=== PATIENT | male | born 1970 | race Caucasian/White ===

== ENCOUNTER 2017-01-24 04:17 | Emergency (ER) | payer OTHER, BC ==
[2017-01-24 04:30] VITALS: BP 100/68; PULSE 77; TEMP 97.3; BMI 36.6
--- NOTE | 2017-01-24 04:41 | PDOC ---
History of Present Illness - General Chief Complaint: Injury Stated Complaint: FALL Time Seen by Provider: 01/24/17 04:25 - History of Present Illness Initial Comments: 01/24/17 04:41 CHIEF COMPLAINT: R hip pain s/p fall HISTORY OF PRESENT ILLNESS: 46 yo M with hx of R femoral bypass and R hip bursitis presents to ED with c/o R hip/leg pain s/p fall. 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 He states he "fell straight down" and was able to catch himself with on his hands and knees. He denies any LOC or trauma to head. He reports that his pain extends from his R hip all the way down to the middle of his R rajan, and fluctuates between a 7/10 to 10/10 pain and "reminds me of my bursitis." He has taken Motrin that was prescribed by Dr. Forrest, last dose was just prior to arrival to ED. No recent travel or sick contacts. 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 Denies tobacco, alcohol, illicit drug use. SURGICAL HISTORY: Denies ALLERGIES: No known drug allergies REVIEW OF SYSTEMS General/Constitutional: Denies fever or chills. Denies weakness, weight change. HEENT: Denies change in vision. Denies ear pain or discharge. Denies sore throat. Cardiovascular: Denies chest pain or shortness of breath. Respiratory: Denies cough, wheezing, or hemoptysis. Gastrointestinal: Denies nausea, vomiting, diarrhea or constipation. Denies rectal bleeding. Genitourinary: Denies dysuria, frequency, or change in urination. Musculoskeletal: "My right hip hurts all the way down to my right rajan." Denies joint or muscle swelling or pain. Denies neck or back pain. Skin and breasts: Denies rash or easy bruising. Neurologic: Denies headache, vertigo, loss of consciousness, or loss of sensation. Psychiatric: Denies depression or anxiety. PHYSICAL EXAM General Appearance: Well-appearing, appropriately dressed. No apparent distress , no intoxication. HEENT: EOMI, PERRLA, normal ENT inspection, normal voice, TMs normal, pharynx normal. No conjunctival pallor. No photophobia, scleral icterus. Neck: Supple. Trachea midline. No tenderness, rigidity, carotid bruit, stridor , lymphadenopathy, or thyromegaly. Respiratory/Chest: Lungs CTAB. No shortness of breath, chest tenderness, respiratory distress, accessory muscle use. No crackles, rales, rhonchi, stridor , wheezing, dullness Cardiovascular: RRR. S1, S2. No JVD, murmur, bradycardia, tachycardia. Vascular Pulses: Dorsalis-Pedis (R): 2+, Dorsalis-Pedis (L): 2+ Gastrointestinal/Abdominal: Normal bowel sounds. Abdomen soft, non-distended. No tenderness or rebound tenderness. No organomegaly, pulsatile mass, guarding , hernia, hepatomegaly, splenomegaly. Lymphatic: No adenopathy, tenderness. Musculoskeletal/Extremities: Normal inspection. FROM of all extremities, normal capillary refill. Pelvis Stable. No CVA tenderness. No tenderness to extremities, pedal edema, swelling, erythema or deformity. Integumentary: Appropriate color, dry, warm. No cyanosis, erythema, jaundice or rash Neurologic: automatic folder seamer II-XII intact. Fully oriented, alert. Appropriate mood/affect. Motor strength 5/5. No appreciable EOM palsy, facial droop or sensory deficit. 01/24/17 04:49 01/24/17 05:51 Past History - Past Medical History Allergies/Adverse Reactions: Allergies Allergy/AdvReac Type Severity Reaction Status Date / Time No Known Allergies Allergy Verified 01/24/17 04:27 Home Medications: Ambulatory Orders No Home Medications 0 dose .ROUTE UTDICT 11/13/13 Tramadol HCl [Ultram] 50 mg PO TID PRN #15 tablet MDD 3 01/24/17 Other medical history: denies - Surgical History Abdominal Surgery: Yes (gastric bypass) - Immunization History Immunization Up to Date: Yes - Psycho/Social/Smoking Cessation Hx Anxiety: No Suicidal Ideation: No Smoking History: Never smoked Have you smoked in the past 12 months: No Number of Cigarettes Smoked Daily: 0 Hx Alcohol Use: No Substance Use Type: None *Physical Exam - Vital Signs Last Vital Signs Temp Pulse Resp BP Pulse Ox 97.3 F L 77 18 100/68 100 01/24/17 04:27 01/24/17 04:27 01/24/17 04:27 01/24/17 04:27 01/24/17 04:27 Medical Decision Making - Medical Decision Making 01/24/17 05:51 46 yo M with hx of R femoral bypass and R hip bursitis presents to ED with c/o R hip/leg pain s/p fall. 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 -X-ray of R hip/pelvis/femur/knee Patient just took Motrin of unknown dosage prior to arrival. Discussed with patient that since he drove, will rx pain medication for him to take when he gets home. Advised patient to f/u with ortho for further evaluation and possible MRI. Patient verbalized understanding and agrees to plan, he states he has an orthopedist in the [place] he will go to. *DC/Admit/Observation/Transfer Diagnosis at time of Disposition: Accidental fall Qualifiers: Encounter type: initial encounter Qualified Code(s): W19.XXXA - Unspecified fall, initial encounter - Discharge Dispostion Disposition: HOME Condition at time of disposition: Stable Admit: No - Prescriptions Prescriptions: Tramadol HCl [Ultram] 50 mg PO TID PRN #15 tablet MDD 3 PRN Reason: Pain - Referrals Referrals: Abby Forrest MD [Primary Care Provider] - - Patient Instructions Printed Discharge Instructions: DI for Knee Pain, Help for Hip Pain, DI for Leg Pain, How To Perform RICE (Rest, Ice, Compress, Elevate) Additional Instructions: As discussed, do not operate machinery or drive while taking medication. Please follow up with your orthopedist for further evaluation of your hip and leg pain. If you experience any back pain, loss of sensation to your legs, loss of bowel or bladder function, shortness of breath, palpitations, swelling to your legs, or any new or worsening symptoms, please return to the ER. - Post Discharge Activity Work/School Note: Back to Work
--- NOTE | 2017-01-24 05:54 | PDOC ---
[id number] 100 01/24/17 04:27 01/24/17 04:27 01/24/17 04:27 01/24/17 04:27 01/24/17 04:27 Medical Decision Making - Medical Decision Making 01/24/17 05:51 agree with care from [facility] Pt s/p fall yesterday. All xrays are negative for fracture. Pt to be discharged *DC/Admit/Observation/Transfer Diagnosis at time of Disposition: Accidental fall - Discharge Dispostion Disposition: HOME - Prescriptions Prescriptions: Tramadol HCl [Ultram] 50 mg PO TID PRN #15 tablet MDD 3 PRN Reason: Pain - Referrals Referrals: Abby Forrest MD [Primary Care Provider] - - Patient Instructions Printed Discharge Instructions: Help for Hip Pain, How To Perform RICE (Rest, Ice, Compress, Elevate), DI for Knee Pain, DI for Leg Pain Additional Instructions: As discussed, do not operate machinery or drive while taking medication. Please follow up with your orthopedist for further evaluation of your hip and leg pain. If you experience any back pain, loss of sensation to your legs, loss of bowel or bladder function, shortness of breath, palpitations, swelling to your legs, or any new or worsening symptoms, please return to the ER. - Post Discharge Activity Work/School Note: Back to Work
== END 2017-01-24 05:55 | disposition home or self-care (01) ==
LOC: JER 04:17
DX: M25.551 Pain in right hip (principal); M79.604 Pain in right leg; W00.0XXA Fall on same level due to ice and snow, initial encounter; Y93.89 Activity, other specified; Y92.89 Other specified places as the place of occurrence of the external cause; Y99.0 Civilian activity done for income or pay
CPT/HCPCS: 73523-TC; 73552-TC-RT; 73562-TC-RT; 99282-25

== ENCOUNTER 2019-05-08 20:56 | Emergency (ER) | payer BC, OTHER ==
[2019-05-08 21:18] VITALS: BP 132/80; PULSE 74; TEMP 98; BMI 42.7
[2019-05-08] MEDS ORDERED: DOXYCYCLINE HYCLATE 100 MG CAPSULE PO ONE ×2 (22:12→22:15)
--- NOTE | 2019-05-09 03:40 | PDOC ---
Documentation entered by Jess Harrington SCRIBE, acting as scribe for Loren Lowery MD. Loren Lowery MD: This documentation has been prepared by the scribe, Jess Harrington SCRIBE, under my direction and personally reviewed by me in its entirety. I confirm that the documentation accurately reflects all work, treatment, procedures, and medical decision making performed by me. History of Present Illness - General Chief Complaint: Redness To Affected Area Stated Complaint: TICK BITE Time Seen by Provider: 05/08/19 21:00 History Source: Patient Exam Limitations: No Limitations - History of Present Illness Initial Comments: 05/08/19 22:03 The patient is a 48-year-old male, with a past medical history of arterial occlusion R LE (Bypass in 2002, 2003; he is not taking aspirin as originally prescribed), morbid obesity, who presents to the ED with an area of redness LT posterior knee s/p tick bite. The patient [place] and recently visited his mother who also lives in a wooded area and feeds the deer in her backyard. He states that he does pace in his backyard when he takes phone calls and that could be the reason he came into contact with one recently. Patient discovered the tick on Saturday 05/05 and removed it with tweezers, but is unsure if he removed all the contents. Tick was of a dime size. He decided to report to the ED for further evaluation when he noted the area becoming increasingly more red, warm, painful and itchy. He states that he is experiencing numbness as you move up the leg and itchiness as you move down the leg. He has been bitten by ticks in the past, but has never been worked up for Lyme since he has never presented with symptoms. He discovered another tick at his waistline 2 weeks ago. The patient denies any fevers, chills, nausea, vomiting, diarrhea, or abdominal pain. He denies any chest pain or shortness of breath. Denies having any headache, weakness, dizziness, or lightheadedness. Allergies: NKA Social History: Works for [employer]) and has to travel for work. He denies any tobacco, alcohol, or drug use. Surgical History: Gastric bypass. PCP: Dr. Forrest 05/09/19 05:01 Past History - Past Medical History Allergies/Adverse Reactions: Allergies Allergy/AdvReac Type Severity Reaction Status Date / Time No Known Allergies Allergy Verified 05/08/19 20:57 Home Medications: Ambulatory Orders No Home Medications 0 dose .ROUTE UTDICT 11/13/13 Doxycycline Hyclate 100 mg PO BID #28 capsule 05/08/19 DVT: No (right leg bypass 2003) - Surgical History Abdominal Surgery: Yes (gastric bypass) - Immunization History Immunization Up to Date: Yes - Suicide/Smoking/Psychosocial Hx Smoking History: Never smoked Have you smoked in the past 12 months: No Number of Cigarettes Smoked Daily: 0 Hx Alcohol Use: No Substance Use Type: None Review of Systems - Review of Systems Able to Perform ROS?: Yes Comments:: 05/08/19 22:05 CONSTITUTIONAL: Absent: fever, no chills, no fatigue EYES: Absent: visual changes ENT: Absent: ear pain, no sore throat CARDIOVASCULAR: Absent: chest pain, no palpitations RESPIRATORY: Absent: cough, no SOB GI: Absent: abdominal pain, no nausea, no vomiting, no constipation, no diarrhea GENITOURINARY: Absent: dysuria, no frequency, no hematuria MUSKULOSKELETAL: (+)Pain to the LT posterior knee. Absent: back pain, no arthralgia. SKIN: (+)Area of redness and warm to the LT posterior knee. NEURO: (+)Numbness LLE. Absent: headache *Physical Exam - Vital Signs Last Vital Signs Temp Pulse Resp BP Pulse Ox 98.0 F 74 18 132/80 98 05/08/19 20:57 05/08/19 20:57 05/08/19 20:57 05/08/19 20:57 05/08/19 20:57 - Physical Exam Comments: 05/08/19 22:08 GENERAL: Well-appearing, well-nourished. No apparent distress. HEENT: Normocephalic, atraumatic. PERRL, EOM intact. CARDIOVASCULAR: Normal S1, S2. Regular rate and rhythm. PULMONARY: Clear to auscultation bilaterally. ABDOMEN: Soft, non-distended, non-tender. EXTREMITIES: 8cm X 10 cm erythematous, slightly indurated, slightly warm to touch area of left popliteal region 0.5 cm eschar in central portion; no evidence of retained foreign body; no fluctuance or purulent discharge;no lymphangitic streaking extremity exam otherwise normal NEUROLOGICAL: No focal neurological deficits. No other rash evident Medical Decision Making - Medical Decision Making This 48-year-old man with a history of morbid obesity/peripheral vascular disease but no known history of tick borne infectious disease, presents with area of acute inflammation of the left popliteal region after he removed an engorged tick from the area a few days ago. Patient states that he removes small, non-engorged ticks from his skin frequently.. This insect was definitely larger and softer than previous ticks. He has had no fever/chills or other systemic symptoms. Exam as noted. Clinical presentation consistent with acute inflammation/cellulitis of the area where apparently engorged tick was removed a few days ago. No systemic symptoms or fever noted. Although rash does not have characteristic bull's-eye appearance of ECM, patient is still potentially in early-stage manifestation after the tick bite. Because of the patient's description of engorged insect, this will be treated as early localized Lyme disease and patient will be started on doxycycline 100 mg twice a day. First dose given here in the emergency room. Prescription for full 2 week course sent to patient's pharmacy. Patient should follow-up with his PMD, within the next several days for reevaluation of the rash and laboratory testing as per PMD. If the patient develops high fever/abdominal pain or vomiting, he should return to the emergency room *DC/Admit/Observation/Transfer Diagnosis at time of Disposition: ECM (erythema chronicum migrans) - Discharge Dispostion Disposition: HOME Condition at time of disposition: Stable - Prescriptions Prescriptions: Doxycycline Hyclate 100 mg PO BID #28 capsule - Referrals Referrals: Abby Forrest MD [Primary Care Provider] - 3 days - Patient Instructions Printed Discharge Instructions: DI for Lyme Disease Additional Instructions: Doxycycline 100 mg twice a day for 2 weeks Use sunblock at all times when outside while taking doxycycline Avoid dairy products in the same meal that you take doxycycline dose Follow-up with within the next 3-4 days Return to ER if you have fever/chills, worsening swelling/pain/redness of wound , abdominal pain or vomiting - Post Discharge Activity
== END 2019-05-08 22:22 | disposition home or self-care (01) ==
LOC: FER 20:56
DX: A69.20 Lyme disease, unspecified (principal); E66.01 Morbid (severe) obesity due to excess calories; Z68.42 Body mass index [BMI] 45.0-49.9, adult
CPT/HCPCS: 99281-25

== ENCOUNTER 2019-11-20 22:34 | Emergency (ER) | payer BC, OTHER ==
[2019-11-20 22:42] VITALS: BP 127/71; PULSE 90; TEMP 98; BMI 34.7
--- NOTE | 2019-11-20 23:05 | PDOC ---
History of Present Illness - General Chief Complaint: Respiratory Stated Complaint: COUGH Time Seen by Provider: 11/20/19 22:39 History Source: Patient Exam Limitations: No Limitations - History of Present Illness Initial Comments: 11/21/19 01:13 This is a 49-year-old male who comes in complaining of difficulty breathing and cough x3 months. Patient had taken some antibiotics with out relief and now comes in complaining that it is worse at night. Patient denies any other complaints. Patient denies any chest pain, nausea vomiting or diarrhea. Patient is obese but otherwise healthy. Allergies: as per nursing notes Past Medical History: none Social history: Lives with family. No smoking. No alcohol. No illicit drugs. Surgical history: None General: No fevers or chills, no weakness, no weight loss HEENT: No change in vision. No sore throat,. No ear pain CardioVascular: no chest discomfort. No shortness of breath Respiratory:No cough, or wheezing. Gastrointestinal: no nausea, vomiting, diarrhea or constipation, No rectal bleeding Genitourinary: No dysuria, hematuria, or frequency Musculoskeletal: No joint or muscle pain or swelling Neurologic: No headache, vertigo, dizziness or loss of consciousness Psychiatric: nor depression Skin: No rashes or easy bruising Endocrine: no increased thirst or abnormal weight change Allergic: no skin or latex allergy All other systems reviewed and normal Exam: General: Well-nourished well-developed individual, no acute distress HEENT: Throat: Normal, tonsils normal, no erythema or exudate Neck: Supple, no meningeal signs, no lymphadenopathy Eyes::Pupils equal reactive and round, extraocular motion intact Chest: Nontender to palpation Cardiac: S1-S2 normal, regular rate and rhythm, no murmurs rubs or gallops Respiratory: Lungs clear to auscultation bilateral Abdomen: Soft, nondistended, normal bowel sounds, there is no tenderness on palpation diffusely Extremities: Warm, dry, no cyanosis, clubbing, or edema Skin: No rashes Neuro: Alert and oriented x3, CN II - XII intact, nonfocal exam with normal strength, normal sensation, normal reflexes, normal gait, Psych: Normal mood and affect 11/21/19 01:14 Patient had a work-up including chest x-ray and EKG. Patient's EKG was normal. Patient's chest x-ray was normal. And patient's blood work was normal. Patient reassured and told to follow-up with his primary care doctor Past History - Past Medical History Allergies/Adverse Reactions: Allergies Allergy/AdvReac Type Severity Reaction Status Date / Time No Known Allergies Allergy Verified 05/08/19 20:57 Home Medications: Ambulatory Orders No Home Medications 0 dose .ROUTE UTDICT 11/13/13 Benzonatate [Tessalon Pearls -] 100 mg PO TID #21 capsule 11/21/19 COPD: No DVT: No (right leg bypass 2003) - Surgical History Abdominal Surgery: Yes (gastric bypass) Gastric Stapling: Yes - Immunization History Immunization Up to Date: Yes - Psycho Social/Smoking Cessation Hx Smoking History: Never smoked Have you smoked in the past 12 months: No Number of Cigarettes Smoked Daily: 0 Hx Alcohol Use: No Drug/Substance Use Hx: No Substance Use Type: None *Physical Exam - Vital Signs Last Vital Signs Temp Pulse Resp BP Pulse Ox 98 F 90 16 127/71 98 11/20/19 22:38 11/20/19 22:38 11/20/19 22:38 11/20/19 22:38 11/20/19 22:38 ED Treatment Course - LABORATORY CBC & Chemistry Diagram: 11/21/19 00:00 11/21/19 00:00 Discharge - Discharge Information Problems reviewed: Yes Clinical Impression/Diagnosis: Difficulty breathing Condition: Stable Disposition: HOME - Admission No - Follow up/Referral Referrals: Abby Forrest MD [Primary Care Provider] - - Patient Discharge Instructions Additional Instructions: Take Tessalon Perles as prescribed for the cough. Use a humidifier in your room. Return to the emergency department immediately with ANY new, persistent or worsening symptoms. Continue any medications as previously prescribed by your physician. You should follow up with your primary doctor as soon as possible regarding today's emergency department visit. . Please make sure your doctor reviews the results of your emergency evaluation. Thank you for coming to the Emergency Department today for your care. It was a pleasure to see you today. Please note that your evaluation is INCOMPLETE until you follow-up with your doctor. - Post Discharge Activity
[2019-11-21 00:47] LABS: BASO % 1.2 % (0-2.0); EOS % 3.5 % (0-4.5); HEMATOCRIT 42.1 % (35.4-49); HEMOGLOBIN 13.8 GM/dL (11.7-16.9); LYMPH % 30.6 % (8-40); MCH 29.5 pg (25.7-33.7); MCHC 32.7 g/dl (32.0-35.9); MEAN CELL VOLUME 90.2 fl (80-96); MEAN PLT VOLUME 7.7 fl (7.5-11.1); MONO % 10.1 % (3.8-10.2); NEUT % 54.6 % (42.8-82.8); PLATELET COUNT 342 K/MM3 (134-434); RBC 4.67 M/mm3 (4.00-5.60); RDW 13.4 % (11.9-15.9); WHITE BLOOD COUNT 12.1 K/mm3 (4.0-10.0)
[2019-11-21 01:07] LABS: ALBUMIN 3.6 g/dl (3.4-5.0); ALK PHOS 62 U/L (45-117); ANION GAP 6 MMOL/L (8-16); BILIRUBIN,TOTAL 0.3 mg/dL (0.2-1); BLOOD UREA NITROGEN 17.3 mg/dL (7-18); CHLORIDE 103 mmol/L (98-107); CO2 30 mmol/L (21-32); CREATININE 0.8 mg/dL (0.55-1.3); GLUCOSE,RANDOM 90 mg/dL (74-106); POTASSIUM 4.3 mmol/L (3.5-5.1); SGOT/AST 12 U/L (15-37); SGPT/ALT 26 U/L (13-61); SODIUM 140 mmol/L (136-145); TOT PROT 7.7 g/dl (6.4-8.2)
--- NOTE | 2019-11-21 09:00 | EKG ---
Test Reason : Blood Pressure : / mmHG Vent. Rate : 076 BPM Atrial Rate : 076 BPM P-R Int : 144 ms QRS Dur : 086 ms QT Int : 360 ms P-R-T Axes : 046 025 030 degrees QTc Int : 405 ms NORMAL SINUS RHYTHM NORMAL ECG WHEN COMPARED WITH ECG OF 02-JUN-1999 12:39, NO SIGNIFICANT CHANGE WAS FOUND Confirmed by ANGELIA SINGH MD ([id number]) on 11/21/2019 9:00:19 AM Referred By: MD HANNON Confirmed By:ANGELIA SINGH MD
== END 2019-11-21 01:18 | disposition home or self-care (01) ==
LOC: FER 22:34
DX: R06.00 Dyspnea, unspecified (principal); E66.9 Obesity, unspecified; Z98.84 Bariatric surgery status
CPT/HCPCS: 36415; 71046-TC-FY; 80053; 82550; 83880; 84484; 85025; 87798; 93005; 99282-25

== ENCOUNTER 2020-08-03 16:44 | Emergency (ER) | payer BC ==
[2020-08-03 16:46] VITALS: BMI 42.8
--- NOTE | 2020-08-03 16:55 | PDOC ---
History of Present Illness - General Chief Complaint: Diarrhea Stated Complaint: DIARRHEA Time Seen by Provider: 08/03/20 16:47 - History of Present Illness Initial Comments: 08/03/20 17:21 Chief complaint: Diarrhea HPI: Flulike illness beginning Saturday night and consisting of fever and chills, body aches, headache, and nausea. Diarrhea began on Saturday and was profuse, consisting of watery greenish and brownish fluid. He denies blood. Diarrhea and associated crampy abdominal has persisted, although the stools have been v blu small in volume, they have been frequent, sometimes 2 or 3/h. No vomiting. Has been tolerating small amounts of p.o. fluids and soup. Systems: Denies URI symptoms, sore throat, cough, chest pain, shortness of breath, visual or focal neurologic symptoms, unsteadiness of gait, urinary tract symptoms. Remainder of systems reviewed and negative Past medical history: Morbid obesity, gastric sleeve 5 years ago, without complication. Initially lost considerable weight, but has regained most of it back. No other abdominal surgery. No GI disease. No history of diabetes, cardiovascular disease, or pulmonary disease. Social history: No tobacco, nonprescription drugs, or alcohol. Had been a heavy drinker up until 5 years ago, felt his drinking was becoming a problem, and quit. He has not had a drink since. Works for [employer] with considerable social contact, was tested for COVID 19 on Saturday and was negative. Family history: Reviewed and noncontributory Physical exam: Alert and oriented moderately obese no acute distress cooperative Afebrile, vital signs normal No pallor or icterus. PERRLA, ENT clear Neck supple without bruit mass or nodes Lungs clear, full breath sounds bilaterally CV S1-S2 normal without murmur rub or gallop pulses full and symmetric no JVD or edema no bruits 88 and regular Abdomen nondistended. Bowel sounds normal. Soft without mass organomegaly. There is mild diffuse tenderness to deep palpation throughout the abdomen without localization. No guarding or rebound. Extremities no CCE Skin clear, no rash, adequate turgor and wet mucous membranes Neurological intact Impression: Flulike illness with persistent gastrointestinal symptoms, predom inantly frequent watery diarrhea but in very small volumes. Several days duration. Plan: Check electrolytes and the remaining chemistries, CBC, IV fluids, antispasmodics, antidiarrheals. Observation and further evaluation depending on results. Repeat COVID 19 test. This is still a possibility despite the initial normal results. Past History - Medical History Allergies/Adverse Reactions: Allergies Allergy/AdvReac Type Severity Reaction Status Date / Time No Known Allergies Allergy Verified 08/03/20 16:44 Home Medications: Ambulatory Orders No Home Medications 0 dose .ROUTE UTDICT 11/13/13 COPD: No DVT: No (right leg bypass 2003) - Surgical History Abdominal Surgery: Yes (gastric bypass) Gastric Stapling: Yes - Immunization History Immunization Up to Date: Yes - Psycho-Social/Smoking History Smoking History: Never smoked Have you smoked in the past 12 months: No Number of Cigarettes Smoked Daily: 0 - Substance Abuse Hx (Audit-C & DAST Scrn) How often the patient has a drink containing alcohol: Never Score: In Men: 4 or > Positive; In Women: 3 or > Positive: 0 Screen Result (Pos requires Nsg. Audit-10AR): Negative In the last yr the pt used illegal drug/Rx for NonMed reason: No Score: Yes response is considered Positive: 0 Screen Result (Positive result requires Nsg. DAST-10): Negative *Physical Exam - Vital Signs Last Vital Signs Temp Pulse Resp BP Pulse Ox 0/0 L 08/03/20 16:44 ED Treatment Course - LABORATORY CBC & Chemistry Diagram: 08/03/20 17:10 08/03/20 17:00 Medical Decision Making - Medical Decision Making 08/03/20 18:55 Patient improved with fluids and Imodium. No further diarrhea or abdominal cramps Labs were reviewed. Potassium 3.4, white count 11.3, otherwise no significant abnormalities. Dose of oral potassium was given. To continue Imodium. Lots of fluids. Return to ER if worse otherwise follow-up primary physician. Fully ambulatory in no distress at discharge. Discharge - Discharge Information Problems reviewed: Yes Clinical Impression/Diagnosis: Viral gastroenteritis Condition: Improved Disposition: HOME - Admission No - Follow up/Referral Referrals: Abby Forrest MD [Primary Care Provider] - - Patient Discharge Instructions Patient Printed Discharge Instructions: DI for Diarrhea and Traveler's Diarrhea -- Adult Additional Instructions: Stay hydrated, drink lots of fluids. Consider potassium rich foods such as ban anas and citrus Use Imodium OTC for spasm or if the diarrhea becomes more severe In 2 to 3 days, if symptoms have not completely resolved, recheck primary physician or return to ER. - Post Discharge Activity
[2020-08-03] MEDS ORDERED: LOPERAMIDE HCL 2 MG CAPSULE PO ONE (16:56)
[2020-08-03] MEDS ORDERED: SODIUM CHLORIDE 1,000 ML IV STA (16:56)
[2020-08-03] MEDS ORDERED: LOPERAMIDE HCL 2 MG CAPSULE ONE (17:04)
[2020-08-03 17:24] LABS: BASO % 1.3 % (0-2.0); EOS % 1.9 % (0-4.5); HEMATOCRIT 41.8 % (35.4-49); HEMOGLOBIN 14.1 GM/dl (11.7-16.9); LYMPH % 20.6 % (8-40); MCH 30.4 pg (25.7-33.7); MCHC 33.7 g/dl (32.0-35.9); MEAN CELL VOLUME 90.2 fl (80-96); MEAN PLT VOLUME 7.3 fl (7.5-11.1); MONO % 13.2 % (3.8-10.2); PLATELET COUNT 369 K/MM3 (134-434); RBC 4.64 M/mm3 (4.00-5.60); RDW 12.8 % (11.9-15.9); WHITE BLOOD COUNT 11.3 K/mm3 (4.0-10.8)
[2020-08-03 17:36] LABS: ALBUMIN 3.2 g/dl (3.4-5.0); BILIRUBIN,TOTAL 0.6 mg/dl (0.2-1); CALCIUM 8.3 mg/dl (8.5-10); CREATININE 0.8 mg/dl (0.55-1.3); POTASSIUM 3.4 mmol/L (3.5-5.1); TOT PROT 7.3 g/dl (6.4-8.2)
[2020-08-03 18:22] VITALS: BP 120/79; PULSE 91; TEMP 99.1
[2020-08-03] MEDS ORDERED: POTASSIUM CHLORIDE ORAL LIQUID 20 MEQ/15 ML PO ONE (18:44)
[2020-08-03] MEDS ORDERED: POTASSIUM CHLORIDE ORAL LIQUID 20 MEQ/15 ML ONE (18:45)
--- OUTSIDE RECORDS SUMMARY | 2020-08-03 20:35 | XMS ---
:1970 Author Organization [facility] Support Name Relationship Address Phone VERI Unavailable [address] [facility] [phone] [place] [address] NAZ PARKER FATHER [address] [facility] [address] Re-disclosure Warning The records that you are about to access may contain information from federally- assisted alcohol or drug abuse programs. If such information is present, then the following federally mandated warning applies: This information has been disclosed to you from records protected by federal confidentiality rules (42 CFR part 2). The federal rules prohibit you from making any further disclosure of this information unless further disclosure is expressly permitted by the written consent of the person to whom it pertains or as otherwise permitted by 42 CFR part 2. A general authorization for the release of medical or other information is NOT sufficient for this purpose. The Federal rules restrict any use of the information to criminally investigate or prosecute any alcohol or drug abuse patient.The records that you are about to access may contain highly sensitive health information, the redisclosure of which is protected by Article 27-F of the [facility] Public Health law. If you continue you may haveaccess to information: Regarding HIV / AIDS; Provided by facilities licensed or operated by the [facility] Office of Mental Health; or Provided by the [facility] Office for People With Developmental Disabilities. If such information is present, then the following [facility] mandated warning applies: This information has been disclosed to you from confidential records which are protected by state law. State law prohibits you from making any further disclosure of this information without the specific written consent of the person to whom it pertains, or as otherwise permitted by law. Any unauthorized further disclosure in violation of state law may result in a fine or longterm sentence or both. A general authorization for the release of medical or other information is NOT sufficient authorization for further disclosure. Insurance Providers Payer name Policy type Policy ID Covered Covered constitution party's Policy P jonn / Coverage constitution party ID relationship to Gloria Inf ormation type gloria BC OUT OF [id number] SP [id number] [place] [id number] SP [id number] [place] OUT OF [id number] SP [id number] [address] Results ID Date Data Source [id number] 07/14/2020 12:00:00 AM EDT [place] Name Value Range Interpretation Description Data Sup porting Code Source(s) Document(s ) SARS [place] Coronavirus 2 This lab was ordered by [facility] and reported by [facility]. Procedure
== END 2020-08-03 18:51 | disposition home or self-care (01) ==
LOC: FER 16:44 → SUPCPDRO 16:44 → FER 18:51
PROC: 3E0337Z Introduction of Electrolytic and Water Balance Substance into Peripheral Vein, Percutaneous Approach (ICD-10-PCS; principal; 2020-08-03)
DX: A08.4 Viral intestinal infection, unspecified (principal)
CPT/HCPCS: 36415; 80053; 85025; 86769; 99284-25

== ENCOUNTER 2022-12-21 13:05 | Inpatient (IN) | payer BC ==
[2022-12-21] MEDS ORDERED: VANCOMYCIN HCL 1,500 MG in DEXTROSE 5%-WATER - 500 ML IVPB ONE (13:49)
[2022-12-21] MEDS ORDERED: VANCOMYCIN 1,000 MG VIAL (RESTRICTED TO ID ONLY) ONE (14:02)
[2022-12-21] MEDS ORDERED: VANCOMYCIN 500 MG VIAL (RESTRICTED TO ID ONLY) ONE (14:02)
[2022-12-21 14:18] LABS: HEMATOCRIT 40.3 % (35.4-49); HEMOGLOBIN 14.2 G/dL (11.7-16.9); MCH 31.4 pg (25.7-33.7); MCHC 35.3 g/dl (32.0-35.9); MEAN PLT VOLUME 7.3 fl (7.5-11.1); RBC 4.53 10^6/uL (4.00-5.60); RDW 13.9 % (11.9-15.9); WHITE BLOOD COUNT 12.8 10^3/uL (4.0-10.8)
[2022-12-21 14:24] LABS: ALBUMIN 3.7 g/dl (3.4-5.0); BILIRUBIN,TOTAL 0.6 mg/dl (0.2-1); CREATININE 0.8 mg/dl (0.55-1.3); TOT PROT 7.6 g/dl (6.4-8.2)
[2022-12-21 14:43] LABS: PLATELET ESTIMATE ADEQUATE
[2022-12-21] MEDS ORDERED: IBUPROFEN 400 MG TABLET (FP) PO ONE ×2 (14:54→15:12)
[2022-12-21 17:39] VITALS: BMI 45.5
[2022-12-21] MEDS: HEPARIN NA (PORCINE) 5,000 UNITS/ML 1ML VIAL SQ SCH ×2 (17:52→21:53)
[2022-12-21] MEDS: PIPERACILLIN/TAZOB 3.375 GM 3.375 GM in DEXTROSE 5%-WATER - 50 ML IVPB SCH ×2 (17:52→20:15)
[2022-12-22] MEDS: PIPERACILLIN/TAZOB 3.375 GM 3.375 GM in DEXTROSE 5%-WATER - 50 ML IVPB SCH ×3 (01:44→21:13)
[2022-12-22] MEDS: HEPARIN NA (PORCINE) 5,000 UNITS/ML 1ML VIAL SQ SCH ×3 (06:19→22:06)
[2022-12-22 08:29] LABS: ALBUMIN 3.2 g/dl (3.4-5.0); BILIRUBIN,TOTAL 0.9 mg/dl (0.2-1); CALCIUM 8.4 mg/dl (8.5-10); CREATININE 0.8 mg/dl (0.55-1.3); TOT PROT 6.7 g/dl (6.4-8.2)
[2022-12-22 11:03] LABS: BASO % 1.1 % (0-2.0); EOS % 2.4 % (0-4.5); HEMATOCRIT 38.2 % (35.4-49); HEMOGLOBIN 13.1 GM/dL (11.7-16.9); LYMPH % 23.8 % (8-40); MCH 30.4 pg (25.7-33.7); MCHC 34.3 g/dl (32.0-35.9); MEAN CELL VOLUME 88.7 fl (80-96); MEAN PLT VOLUME 7.3 fl (7.5-11.1); MONO % 8.9 % (3.8-10.2); NEUT % 63.8 % (42.8-82.8); PLATELET COUNT 318 10^3/uL (134-434); RBC 4.31 M/mm3 (4.00-5.60); RDW 14.2 % (11.9-15.9); WHITE BLOOD COUNT 9.4 K/mm3 (4.0-10.0)
[2022-12-22] MEDS: VANCOMYCIN HCL 1,500 MG in DEXTROSE 5%-WATER - 250 ML IVPB SCH ×2 (11:44→23:31)
[2022-12-22] MEDS: PIPERACILLIN/TAZOB 4.5 GM 4.5 GM in DEXTROSE 5%-WATER 100 ML IVPB SCH ×3 (14:57→22:06)
[2022-12-22] MEDS: ACETAMINOPHEN 1000 MG/100 ML BAG IVPB PRN (18:09)
[2022-12-23] MEDS: HEPARIN NA (PORCINE) 5,000 UNITS/ML 1ML VIAL SQ SCH ×3 (06:16→21:44)
[2022-12-23] MEDS: PIPERACILLIN/TAZOB 4.5 GM 4.5 GM in DEXTROSE 5%-WATER 100 ML IVPB SCH ×3 (06:17→23:28)
[2022-12-23 09:03] LABS: ALBUMIN 3.2 g/dl (3.4-5.0); BILIRUBIN,TOTAL 0.5 mg/dl (0.2-1); CALCIUM 8.4 mg/dl (8.5-10); CREATININE 0.8 mg/dl (0.55-1.3); TOT PROT 6.3 g/dl (6.4-8.2)
[2022-12-23] MEDS: VANCOMYCIN HCL 1,500 MG in DEXTROSE 5%-WATER - 250 ML IVPB SCH ×2 (11:28→23:29)
[2022-12-23] MEDS: ACETAMINOPHEN 1000 MG/100 ML BAG IVPB PRN (11:34)
[2022-12-24] MEDS: HEPARIN NA (PORCINE) 5,000 UNITS/ML 1ML VIAL SQ SCH ×3 (06:25→22:00)
[2022-12-24] MEDS: PIPERACILLIN/TAZOB 4.5 GM 4.5 GM in DEXTROSE 5%-WATER 100 ML IVPB SCH ×3 (06:25→22:00)
[2022-12-24] MEDS: VANCOMYCIN HCL 1,500 MG in DEXTROSE 5%-WATER - 250 ML IVPB SCH (11:57)
[2022-12-24] MEDS: LIDOCAINE 5% TOPICAL PATCH TP SCH (17:01)
[2022-12-24] MEDS ORDERED: REFRIGERATED ANITBIOTICS ONE (21:10)
[2022-12-24] MEDS: VANCOMYCIN PREMIX 1.5 GM 1,500 MG/300 ML BAG IVPB SCH (22:00)
[2022-12-24] MEDS ORDERED: LIDOCAINE PATCH REMOVAL MC SCH (22:00)
[2022-12-25] MEDS: PIPERACILLIN/TAZOB 4.5 GM 4.5 GM in DEXTROSE 5%-WATER 100 ML IVPB SCH (06:24)
[2022-12-25] MEDS: HEPARIN NA (PORCINE) 5,000 UNITS/ML 1ML VIAL SQ SCH ×2 (06:25→14:58)
[2022-12-25] MEDS: VANCOMYCIN PREMIX 1.5 GM 1,500 MG/300 ML BAG IVPB SCH (09:17)
[2022-12-25] MEDS: LIDOCAINE 5% TOPICAL PATCH TP SCH (09:18)
[2022-12-25] MEDS ORDERED: VANCOMYCIN HCL 1,500 MG in DEXTROSE 5%-WATER - 500 ML IVPB SCH (10:00)
[2022-12-25 13:54] VITALS: PULSE 85; RESP 18; TEMP 98.1
[2022-12-25 13:55] VITALS: BP 104/46
== END 2022-12-25 17:55 | disposition home or self-care (01) | DRG 603 ==
LOC: FER 13:05 → FM/S 14:59 → OBSVTOIN 15:09
PROVIDERS: ADMIT Family Medicine; ATTEND Family Medicine
DX: L03.115 Cellulitis of right lower limb (principal); Z68.41 Body mass index [BMI] 40.0-44.9, adult; E66.9 Obesity, unspecified; I80.01 Phlebitis and thrombophlebitis of superficial vessels of right lower extremity
CPT/HCPCS: 36415; 71101-TC-RT-FY; 73701-TC-RT; 74177-TC; 80053; 81003; 85025; 85027; 85651; 86140; 87040; 93005; 93971-TC; 99285-25; C9803-CS; G0378; G0480; J1644; Q9967; U0003; U0005

== ENCOUNTER 2023-10-15 17:10 | Emergency (ER) | payer BC ==
[2023-10-15] MEDS ORDERED: LIDOCAINE 5% TOPICAL PATCH TP ONE (17:27)
[2023-10-15] MEDS ORDERED: KETOROLAC TROMETHAMINE 30 MG/1 ML VIAL IM ONE (17:27)
[2023-10-15 17:28] VITALS: BP 126/97; PULSE 88; RESP 16; TEMP 97.8; BMI 44.3
[2023-10-15] MEDS ORDERED: LIDOCAINE 5% TOPICAL PATCH ONE (17:38)
[2023-10-15] MEDS ORDERED: KETOROLAC TROMETHAMINE 30 MG/1 ML VIAL ONE (17:38)
[2023-10-15] MEDS ORDERED: LIDOCAINE PATCH REMOVAL MC SCH (22:00)
== END 2023-10-15 19:00 | disposition home or self-care (01) ==
LOC: FER 17:10
PROC: 3E0233Z Introduction of Anti-inflammatory into Muscle, Percutaneous Approach (ICD-10-PCS; principal; 2023-10-15)
DX: M54.50 Low back pain, unspecified (principal)
CPT/HCPCS: 72100-TC-FY; 81003; 99284-25